=== PATIENT | male | born 1970 ===

== ENCOUNTER → 2023-04-25 08:36 | Outpatient (CLI) | payer OTHER, SELFPAY ==
--- NOTE | 2023-04-25 | DI.US.S_ITS ---
PROCEDURE: US ABDOMEN LIMITED INDICATIONS: ELEVATED LFT'S TECHNIQUE: Real-time scanning was performed of the abdominal and retroperitoneal organs, with image documentation. COMPARISON: None. FINDINGS: Liver: The liver is increased in echogenicity. The liver is normal in size measuring 15.4 centimeters. Gallbladder: Multiple polyps are seen, largest measuring 8 millimeters. No gallstones or gallbladder wall thickening. Biliary ducts: Intrahepatic bile ducts are non-dilated. Extrahepatic bile duct caliber measures 3 mm. Normal is 6-7 mm or less in diameter, or 10 mm or less post-cholecystectomy. Pancreas: Visualized portions of the pancreas are sonographically normal. Tail is not well seen secondary to overlying bowel gas. IMPRESSION: 1. Increased hepatic echogenicity noted possibly related to hepatic steatosis but other sources of hepatocellular disease or hepatic cirrhosis cannot be excluded. Recommend clinical correlation. 2. Multiple gallbladder polyps measuring up to 8 millimeters. Yearly ultrasound follow-up is recommended Dictated by: Golden Arriola M.D. on 04/25/2023 at 11:33 Approved by: Golden Arriola M.D. on 04/25/2023 at 11:35
== END ==
PROVIDERS: Referring Provider Family Medicine; Visit Provider Family Medicine
DX: K82.4 Cholesterolosis of gallbladder (principal); R79.89 Other specified abnormal findings of blood chemistry
CPT/HCPCS: 76705